=== PATIENT | female | born 2000 | race African-American/Black ===

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

== ENCOUNTER 2022-08-23 12:55 | Emergency (ER) | payer OTHER, SELFPAY ==
--- NOTE | ~2022-08-23 | XR_ITS ---
EXAMINATION: XR CHEST CLINICAL INFORMATION: Cough COMPARISON: None TECHNIQUE: 2 views of the chest were obtained. FINDINGS: No significant abnormality is noted involving the heart, lungs, mediastinum, bony thorax or soft tissues. XR/XR chest 2V IMPRESSION: Unremarkable examination.
[2022-08-23 13:06] VITALS: BP 136/83; PULSE 100; RESP 19; TEMP 36.6; O2SAT 98; BMI 29.0
[2022-08-23 16:07] LABS: UPreg QC Valid YES; Urine Pregnancy NEGATIVE (NEGATIVE)
[2022-08-23 16:14] LABS: COVID-19 Test Negative (Negative); IDNOW Serial# 55D5AD1C
--- NOTE | 2022-08-23 16:22 | ED.ASTHMA ---
HPI - Asthma General Chief Complaint: Upper Respiratory Symptoms Stated Complaint: sick for 1 week, asthma Time Seen by Provider: 08/23/22 14:45 Source: patient Mode of arrival: ambulatory History of Present Illness HPI Narrative: 22-year-old female who presents with cough and shortness of breath for 1 week in his taken multiple COVID-19 test for which she has been negative. Patient states that she is an asthmatic and recently moved here from [place] and has run out of medication. She otherwise denies any fever, chills, GI or symptoms. Related Data Previous Rx's Medication Instructions Recorded doxycycline monohydrate 100 mg 100 mg PO BID #20 caps 09/30/21 capsule ibuprofen 600 mg tablet 600 mg PO Q8H PRN pain #20 tabs 09/30/21 prednisone 50 mg tablet 50 mg PO DAILY 4 days #4 tabs 08/23/22 Allergies Allergy/AdvReac Type Severity Reaction Status Date / Time No Known Allergies Allergy Verified 09/30/21 13:00 Review of Systems Review of Systems: Pertinent positives and negatives as stated in HPI 10 point review of systems otherwise negative. PMFSH Past Medical History Source: nursing notes reviewed Surgical History Previous back surgery Social History Social History Advance Directives: No Advance Directives Information Provided: No Physical Exam Vital Signs: Vital Signs: Last Vital Signs Temp 98 F 08/23/22 13:06 Pulse 100 08/23/22 13:06 Resp 19 08/23/22 13:06 BP 136/83 08/23/22 13:06 Pulse Ox 98 08/23/22 13:06 O2 Del Method 08/23/22 13:06 BMI result Body Mass Index 29.0 VITAL SIGNS: Reviewed. GENERAL: Well developed, well nourished, in no acute distress. HEAD: Normocephalic/atraumatic EYES: PERRLA, EOMI EARS: Ext canals without abnormality OROPHARYNX: no oral lesions noted, posterior pharynx clear and non-erythematous without noted tonsillar enlargement/erythema/exudates NECK: Supple, no adenopathy LUNGS: Normal breath sounds minimal expiratory wheeze, no tachypnea and no increased work of breathing. SpO2<98> CARDIOVASCULAR: Regular rate and rhythm without noted murmurs ABDOMEN: Soft, non-tender, non-distended with bowel sounds. MUSCULOSKELETAL: No tenderness, deformities, or effusions noted on gross inspection. EXTREMITIES: No cyanosis, clubbing or edema. SKIN: Inspection of the skin reveals no rashes NEUROLOGIC: Alert and oriented x 4. Strength and sensation to light touch were grossly intact x 4. Course Course Course Narrative: 22-year-old female with history and clinical presentation consistent with asthma but does not appear to be in acute exacerbation on review of all investigations there are no other acute findings. Patient was provided with initial steroids as well as a Ventolin inhaler. She is otherwise discharged home in stable condition. MDM - Asthma Lab Data Labs: Lab Results 08/23/22 08/23/22 Range/Units 15:50 15:50 Urine Test NEGATIVE (NEGATIVE) COVID-19 (MEGAN) Negative (Negative) COVID-19 Clin Com See Note Discharge Plan Discharge Clinical Impression: Asthma Patient Disposition: Home, Self-Care Instructions: Asthma (ED) Additional Instructions: 1. Complete the short course of steroids that you have been started on. 2. Start the process for getting insurance and getting at primary care provider. Return to the ER for worsening symptoms. Prescriptions: New prednisone 50 mg tablet 50 mg PO DAILY 4 Days Qty: 4 0RF No Action doxycycline monohydrate 100 mg capsule 100 mg PO BID Qty: 20 0RF ibuprofen 600 mg tablet 600 mg PO Q8H PRN (Reason: pain) Qty: 20 0RF
[2022-08-23] MEDS: predniSONE 10 MG TABLET 50 MG PO (16:34)
[2022-08-23] MEDS: Albuterol Sulfate 90 MCG 8 GM INHALER 2 PUFF INHALE (16:45)
== END 2022-08-23 16:44 | disposition home or self-care (01) ==
PROVIDERS: Emergency Provider Student in an Organized Health Care Education/Training Program
DX: J45.909 Unspecified asthma, uncomplicated (principal); R05.9 Cough, unspecified; Z20.822 Contact with and (suspected) exposure to COVID-19; Z79.899 Other long term (current) drug therapy
CPT/HCPCS: 71046; 81025; 87635; 99283; 99284

== ENCOUNTER 2023-02-18 13:53 | Emergency (ER) | payer OTHER, SELFPAY ==
[2023-02-18 15:13] VITALS: BP 124/79; PULSE 92; RESP 17; TEMP 36.5; O2SAT 99; BMI 33.0
--- NOTE | 2023-02-18 15:13 | ED_ITS ---
HPI - Skin/Abscess/Foreign Bdy General Chief complaint: Skin/Abscess/Foreign Body <DAPHNIE Foley - Last Filed: 02/18/23 15:17> Stated complaint: Needs cyst drained <DAPHNIE Foley - Last Filed: 02/18/23 15:17> Time Seen by Provider: 02/18/23 17:00 <DAPHNIE Foley - Last Filed: 02/18/23 15:17> Source: patient <Roshan Shan - Last Filed: 02/18/23 17:44> Limitations: no limitations <Roshan Torrez - Last Filed: 02/18/23 17:44> History of Present Illness HPI narrative: 22-year-old female with concerns of a paddle mi abscess. Patient was seen at surgery Center today they given option of getting and drainage start any antibiotics she chose antibiotics could she was quite nervous. Patient has had history of pot all abscess in the past. Which she needed to be drained. Patient states symptoms are moderate. Positive pain. But she is quite nervous about having a drain. No fever chills or other complaints at this time patient denies history of diabetes. <Roshan Torrez - Last Filed: 02/18/23 17:44> Related Data Home medications: Previous Rx's Medication Instructions Recorded doxycycline monohydrate 100 mg 100 mg PO BID #20 caps 09/30/21 capsule ibuprofen 600 mg tablet 600 mg PO Q8H PRN pain #20 tabs 09/30/21 prednisone 50 mg tablet 50 mg PO DAILY 4 days #4 tabs 08/23/22 doxycycline hyclate 100 mg capsule 100 mg PO BID 10 days #20 caps 02/18/23 ibuprofen 600 mg tablet 600 mg PO TID PRN pain #20 tabs 02/18/23 methocarbamol 750 mg tablet 750 mg PO TID PRN pain (scale 02/18/23 score 4-6) #20 tabs mupirocin 2 % topical ointment 1 appl topical BID #15 grams 02/18/23 <DAPHNIE Foley - Last Filed: 02/18/23 15:17> Allergies/Adverse reactions: Allergies Allergy/AdvReac Type Severity Reaction Status Date / Time No Known Allergies Allergy Verified 09/30/21 13:00 <DAPHNIE Foley Last Filed: 02/18/23 15:17> Review of Systems Review of Systems: General: No fever, no chills Muscle skeletal: No malaise, no back pain GI: No nausea vomiting, no diarrhea : No urinary symptoms Psychiatric: Positive anxiety Skin: Question by in all abscess <Roshan Torrez - Last Filed: 02/18/23 17:44> [facility] Past Medical History Surgical History: Surgical History Previous back surgery <DAPHNIE Foley - Last Filed: 02/18/23 15:17> Social History Social History: Social History Advance Directives: No Advance Directives Information Provided: No <DAPHNIE Foley - Last Filed: 02/18/23 15:17> Physical Exam Vital Signs: Vital Signs: Last Vital Signs Temp 97.7 F 02/18/23 15:13 Pulse 92 02/18/23 15:13 Resp 17 02/18/23 15:13 BP 124/79 02/18/23 15:13 Pulse Ox 99 02/18/23 15:13 O2 Del Method Nasal Cannula 02/18/23 15:13 BMI result Body Mass Index 33.0 <DAPHNIE Foley - Last Filed: 02/18/23 15:17> Vital Signs: Last Vital Signs Temp 97.7 F 02/18/23 15:13 Pulse 92 02/18/23 15:13 Resp 17 02/18/23 15:13 BP 124/79 02/18/23 15:13 Pulse Ox 99 02/18/23 15:13 O2 Del Method Nasal Cannula 02/18/23 15:13 BMI result Body Mass Index 33.0 <Roshan Torrez - Last Filed: 02/18/23 17:44> General appearance: Awake, alert, cooperative, anxious Skin: Warm, dry, no rash Eyes: PERRL, EOMI, no icterus ENT: Oropharynx normal Neck: Trachea midline Extremities: No deformity, nontender, no peripheral edema noted Neuro: Alert oriented x3, no focal deficit Psych: Normal affect <Roshan Torrez - Last Filed: 02/18/23 17:44> Course Course Course Narrative: RME: 22yo F w/PMHx pilonial cyst c/o pilonial cyst since Tuesday. Was seen at [facility] surgical office this AM and given the option for I&D vs Abx and patient chose Abx, was Rx bactrim, however feels area got worse since this AM. Denies fever, drainage Area difficult to assess in triage, but medium +fluctuant pilonial cyst noted on L Likely needs I&D Full HPI, ROS and PE to be performed by primary ED provider. <DAPHNIE Foley - Last Filed: 02/18/23 15:17> Medical Decision Making Medical Decision Making MDM Narrative: Pilonidal abscess Abscess incision and drainage Cellulitis Cyst 22-year-old female with history of final abscess in the past has concerns for recurrent abscess at this time was seen in surgical sent it is a given antibiotics and opted not to have it drained at this time. Will evaluate abs cess once RN is available On exam patient has a very small minimally fluctuant pocket I will abscess with slight induration positive tenderness. Case was discussed at length and decision was made in consultation with patient about to start on doxycycline rather than Bactrim with warm soaks and to follow-up with surgery. 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 <Roshan Torrez - Last Filed: 02/18/23 17:44> Discharge Plan Discharge Clinical Impression: Pilonidal abscess <DAPHNIE Foley - Last Filed: 02/18/23 15:17> Patient Disposition: Home, Self-Care <DAPHNIE Foley Last Filed: 02/18/23 15:17> Instructions: Pilonidal Cyst (ED), Sitz Bath (DC) <DAPHNIE Foley - Last Filed: 02/18/23 15:17> Additional Instructions: Warm soaks 3 to 4 times a day Doxycycline as directed Follow-up with you surgical team Return if symptoms worsen <DAPHNIE Foley Last Filed: 02/18/23 15:17> Prescriptions: New doxycycline hyclate 100 mg capsule 100 mg PO BID 10 Days Qty: 20 0RF mupirocin 2 % ointment 1 appl topical BID Qty: 15 0RF ibuprofen 600 mg tablet 600 mg PO TID PRN (Reason: pain) Qty: 20 0RF methocarbamol 750 mg tablet 750 mg PO TID PRN (Reason: pain (scale score 4-6)) Qty: 20 0RF No Action doxycycline monohydrate 100 mg capsule 100 mg PO BID Qty: 20 0RF ibuprofen 600 mg tablet 600 mg PO Q8H PRN (Reason: pain) Qty: 20 0RF prednisone 50 mg tablet 50 mg PO DAILY 4 Days Qty: 4 0RF <DAPHNIE Foley - Last Filed: 02/18/23 15:17>
== END 2023-02-18 18:15 | disposition home or self-care (01) ==
PROVIDERS: Emergency Provider Emergency Medicine
DX: L05.01 Pilonidal cyst with abscess (principal)
CPT/HCPCS: 99282; 99283

== ENCOUNTER 2023-07-14 14:05 | Emergency (ER) | payer OTHER, SELFPAY ==
--- NOTE | ~2023-07-14 | XR_ITS ---
EXAMINATION: XR LUMBOSACRAL SPINE CLINICAL INFORMATION: Low back pain. COMPARISON: None available. TECHNIQUE: Three views of the lumbosacral spine. FINDINGS: There are 5 nonrib-bearing lumbar vertebral bodies. There is reversal of the lumbar lordosis on the sagittal view. Vertebral body heights and intervertebral disc spaces are maintained. Sacroiliac joints are intact. XR/XR lumbar spine 2-3V IMPRESSION: Reversal of lumbar lordosis.
--- NOTE | ~2023-07-14 | CT_ITS ---
EXAMINATION: CT LUMBAR SPINE WITHOUT CONTRAST CLINICAL INFORMATION: Low back pain. History of surgery. Difficulty urinating. COMPARISON: None TECHNIQUE: Helical non-contrast CT images were obtained through the lumbar spine without contrast. Multiplanar reformats were rendered and reviewed. This CT examination was performed using dose optimization techniques as appropriate, variously including the following: *Automated exposure control *Adjustment of mA and/or kV according to patient size (this includes techniques or standardized protocols for targeted exams where dose is matched to indication/reason for exam; i.e. extremities or head) *Use of iterative reconstruction technique DLP: 470 mGy-cm FINDINGS: The lumbar vertebral bodies maintain normal heights and alignment. There is reversal of normal lumbar lordosis. There is diffuse intervertebral disc height loss throughout all of the visualized thoracolumbar levels. Endplate sclerosis is seen at L3-L4. No fracture is seen. The extraspinal soft tissues are within normal limits. SPINAL LEVELS: L1-L2: No posterior disc abnormality. No spinal canal or neural foraminal stenosis. L2-L3: Diffuse disc bulging resulting in mild to moderate spinal canal stenosis and subarticular stenosis. Mild left neural foraminal stenosis. L3-L4: Posterior decompression changes. Disc bulging with mild osteophytic ridging. Mild narrowing of the left neural foramen. No significant spinal canal stenosis. L4-L5: Posterior decompression changes. Disc bulging with osteophytic ridging resulting in subarticular stenosis and approximately mild spinal canal stenosis. Mild bilateral neural foraminal stenosis. L5-S1: Disc bulging with osteophytic ridging resulting in left subarticular stenosis likely compressing the traversing left S1 nerve root. Moderate left neural foraminal stenosis. CT/CT lumbar spine wo IV con IMPRESSION: Multilevel degenerative spondylosis disproportionate for patient's age. 1. At L5-S1 there is left subarticular stenosis likely compressing the traversing left S1 nerve root. Moderate left neural foraminal stenosis. 2. At L4-L5 there is subarticular stenosis and approximately mild spinal canal stenosis. 3. At L2-L3 there is mild to moderate spinal canal stenosis and subarticular stenosis.
[2023-07-14 14:37] VITALS: BP 127/71; PULSE 79; RESP 18; TEMP 36; O2SAT 96; BMI 29.0
--- NOTE | 2023-07-14 14:37 | ED_ITS ---
HPI - General Adult General Chief complaint: Back Pain/Injury Stated complaint: back pain past surgey Time Seen by Provider: 07/14/23 16:29 Source: patient Mode of arrival: ambulatory Limitations: no limitations History of Present Illness HPI narrative: 23 yo female With history of chronic back pain, history of 2 previous back surgeries in the past when she lived in [place], 1st one was at age 15 who presents to the ER for evaluation of increased lower back pain and numbness around the back of her legs for an hour today. Pain started increasing a few days ago after she lifted heavy boxes. She states that she usually gets intermittent numbness to the legs but only last a few minutes today. She works as a paralegal legal secretary, when she was sitting down she had numbness to the back of her legs for almost an hour. She states she has having pain in the low back which he tries have a bowel movement. She states she recently started having increased urinary urgency, no incontinence or difficultly emptying the bladder. No saddles paresthesias. She recently moved back to [place] and has an appointment with [facility] coming [facility]. She is worried she will need another surgery. MD complaint: low back pain, leg numbness Onset (ago): day(s) Location: left, right and lower extremity Radiation: distal Severity: severe Severity scale (1-10): 9 Quality: aching and sharp Pain Consistency: constant Relieving factors: none Exacerbating factors: none Associated symptoms: denies other symptoms Treatments prior to arrival: none Related Data Previous Rx's Medication Instructions Recorded doxycycline monohydrate 100 mg 100 mg PO BID #20 caps 09/30/21 capsule ibuprofen 600 mg tablet 600 mg PO Q8H PRN pain #20 tabs 09/30/21 prednisone 50 mg tablet 50 mg PO DAILY 4 days #4 tabs 08/23/22 doxycycline hyclate 100 mg capsule 100 mg PO BID 10 days #20 caps 02/18/23 ibuprofen 600 mg tablet 600 mg PO TID PRN pain #20 tabs 02/18/23 methocarbamol 750 mg tablet 750 mg PO TID PRN pain (scale 02/18/23 score 4-6) #20 tabs mupirocin 2 % topical ointment 1 appl topical BID #15 grams 02/18/23 cyclobenzaprine 10 mg tablet 10 mg PO TID PRN muscle spasm #14 07/14/23 tabs prednisone 20 mg tablet 40 mg (2 x 20 mg) PO DAILY #10 tabs 07/14/23 Allergies Allergy/AdvReac Type Severity Reaction Status Date / Time monserrat Allergy Itching Verified 07/14/23 14:42 scallops Allergy Difficulty Verified 07/14/23 14:42 Breathing Review of Systems Review of Systems: Yes all other systems are reviewed and are negative [facility] Past Medical History Surgical History Previous back surgery Social History Social History Advance Directives: No Advance Directives Information Provided: Yes Physical Exam ED Vital Signs: Vital Signs - 24 hr 07/14/23 14:37 Temperature 96.8 F Pulse Rate 79 Respiratory Rate 18 Blood Pressure 127/71 Pulse Oximetry 96 Oxygen Delivery Method Room Air BMI result Body Mass Index 29.0 Appearance: Alert. Oriented X3. No acute distress. Head: normocephalic, atraumatic. Eyes: Pupils equal, round and reactive to light. ENT: Pharynx normal. No tonsillar swelling or exudate. Neck: Normal inspection. Neck supple. CVS: Normal heart rate and rhythm. Pulses normal. Respiratory: No respiratory distress. Breath sounds normal. Abdomen: Soft and nontender. +BS x4. normal rectal tone Back: tenderness of the lumbar spine throughout as well as associated soft tissues. limited flexion of the spine due to pain Skin: Skin warm and dry. Normal skin color. Normal skin turgor. No rashes. Extremities: No lower extremity edema. No joint swelling. Neuro/psych: Oriented X 3. Decreased DTRs to lower extremities bilaterally. Normal speech and cognition. Course Course Course Narrative: This is a rapid medical exam: Additional HPI, ROS, PE not included below will be deferred to primary provider. Patient is a 23-year-old female with history of herniated discs and prior surgery presenting to the ED with complaint of low back pain radiating down bilateral legs. Reports leg numbness which lasted for one hour today, states typically only lasts around 10 minutes. Is not supposed to lift over 20lbs, but was moving this weekend and states that she 100% lifted items heavier than 20lbs. Reports increased pain with bowel movements and states that at times she does not feel the urge to urinate until it's almost too late. States all prior surgeries were in [place]. Denies fevers. Denies saddle anesthesia or bowel or bladder incontinence. Plan: UA, lumbar x-ray Medications Administered Discontinued Medications Generic Name Dose Route Start Last Admin Trade Name Moses PRN Reason Stop Dose Admin Cyclobenzaprine HCl 10 mg 07/14/23 17:00 07/14/23 17:24 Cyclobenzaprine Hcl 10 Mg Tablet PO 07/14/23 17:01 10 mg ONCE ONE Administration Prednisone 60 mg 07/14/23 17:00 07/14/23 17:24 Prednisone 20 Mg Tablet PO 07/14/23 17:01 60 mg ONCE ONE Administration Medical Decision Making Medical Decision Making [facility] Narrative: 23 yo female with history of multiple herniated discs in the past requiring fitch rgery w/ subsequent nerve damage and chronic pain who presents to the ER for evaluation of acute on chronic LBP with numbness down the back of her legs. This is in the setting of recent lifting. She has normal rectal tone on exam. DTRs diminished bilaterally in the legs which she states is chronic. CT scan reviewed - no severe canal stenosis noted but she has mild-moderate canal stenosis w/ disc herniation and S1 nerve root compression. She has follow up with [facility] coming up. Will start prednisone and muscle relaxer - strict return precautions discussed. stable for d/c home Differential Diagnosis Differential Diagnoses: The differential diagnosis associated with the presentation includes Inflammatory disorders, malignancy, trauma, osteoporosis, nerve root compression, radiculopathy, plexopathy, degenerative disc disease, disc herniation, spinal stenosis, sacroiliac joint dysfunction, facet joint injury, cauda equina, and less likely infection?like abscess or diskitis Lab Data [facility] Lab Attestation statement: I reviewed the patient's lab results. Labs: Lab Results 07/14/23 Range/Units 14:53 Urine Color Yellow Urine Appearance Clear Urine pH 5.5 (5.0-9.0) Ur Specific [place] >= 1.030 H (1.005-1.025) Urine Protein Negative (Neg-Trace) mg/dL Urine Glucose (UA) Negative (Negative) mg/dL Urine Ketones Negative (Negative) mg/dL Urine Blood Negative (Negative) Urine Nitrite Negative (Negative) Ur Leukocyte Esterase Negative (Negative) Urine Test NEGATIVE (NEGATIVE) Independent Interpretation I performed an independent interpretation of an: Plain X-Ray and CT Scan Interpretation: xr reviewed no acute fractures CT scan reviewed - multiple abnormalities, agree w/ radiology read Radiology Impression Discussion of test interpretation with radiology: I have reviewed the radiologist's reading. Radiologist Impression: CT/CT lumbar spine wo IV con IMPRESSION: Multilevel degenerative spondylosis disproportionate for patient's age. 1. At L5-S1 there is left subarticular stenosis likely compressing the traversing left S1 nerve root. Moderate left neural foraminal stenosis. 2. At L4-L5 there is subarticular stenosis and approximately mild spinall canal stenosis. 3. At L2-L3 there is mild to moderate spinal canal stenosis and subarticular stenosis. XR/XR lumbar spine 2-3V IMPRESSION: Reversal of lumbar lordosis. Prescription Management I considered prescription management with: Pain Medication Chronic Conditions Patient?s care impacted by: Other (chronic back pain) Critical Care Time Critical Care Time Critical Care Time: No Discharge Plan Discharge Clinical Impression: Lumbar radiculopathy Patient Disposition: Home, Self-Care Instructions: Lumbar Radiculopathy (ED), Lower Back Exercises (ED) Additional Instructions: Follow up with the Spinal Specialist as scheduled. No bending, lifting or twisting. Use ice several times per day for 20 minutes at a time for the next 48 hours and then change to heat. Take medications as prescribed to help with pain and discomfort. Follow up with your Primary Care Doctor this week. If your pain worsens, if you develop new numbness, tingling, weakness, loss of function or incontinence call 911 or come back to the ER right away for evaluation. Prescriptions: New prednisone 20 mg tablet 40 mg PO DAILY Qty: 10 0RF cyclobenzaprine 10 mg tablet 10 mg PO TID PRN (Reason: muscle spasm) Qty: 14 0RF No Action doxycycline monohydrate 100 mg capsule 100 mg PO BID Qty: 20 0RF ibuprofen 600 mg tablet 600 mg PO Q8H PRN (Reason: pain) Qty: 20 0RF prednisone 50 mg tablet 50 mg PO DAILY 4 Days Qty: 4 0RF doxycycline hyclate 100 mg capsule 100 mg PO BID 10 Days Qty: 20 0RF mupirocin 2 % ointment 1 appl topical BID Qty: 15 0RF ibuprofen 600 mg tablet 600 mg PO TID PRN (Reason: pain) Qty: 20 0RF methocarbamol 750 mg tablet 750 mg PO TID PRN (Reason: pain (scale score 4-6)) Qty: 20 0RF Stand Alone Forms: Work/School Release
[2023-07-14 15:03] LABS: Appearance Urine Clear; Color Urine Yellow; Glucose Urine UA Negative (Negative); Leukocyte Esterase Urine Negative (Negative); Nitrite Urine Negative (Negative); PH 5.5 (5.0-9.0); Specific Gravity - Urine >= 1.030 (1.005-1.025); Urine Blood Negative (Negative); Urine Ketones Negative (Negative); Urine Protein Negative (Neg-Trace)
[2023-07-14 15:07] LABS: UPreg QC Valid YES; Urine Pregnancy NEGATIVE (NEGATIVE)
[2023-07-14] MEDS: predniSONE 20 MG TABLET 60 MG PO (17:24)
[2023-07-14] MEDS: Cyclobenzaprine HCl 10 MG TABLET PO (17:24)
[2023-07-14 18:45] VITALS: BP 115/78; PULSE 80; RESP 16; O2SAT 98
== END 2023-07-14 19:02 | disposition home or self-care (01) ==
PROVIDERS: Registered Nurse Emergency; Emergency Provider Emergency Medicine
DX: M54.16 Radiculopathy, lumbar region (principal); M54.50 Low back pain, unspecified
CPT/HCPCS: 72100; 72131; 81003; 81025; 99284